=== PATIENT | male | born 1960 | race Caucasian/White ===

== ENCOUNTER 2024-04-25 08:10 | Day surgery (SDC) | payer BC ==
[~2024-04-25] VITALS: Ht 172.7 cm; Wt 90.5 kg
[2024-04-25] MEDS: CEFAZOLIN SOD 2 GM in D5W 50 ML IV ONE (07:00)
[2024-04-25] MEDS: ACETAMINOPHEN 500 MG TABLET ONE (08:30)
[2024-04-25] MEDS: oxyCODONE HCL 10 MG TAB.ER.12H PO ONE ×2 (08:31→11:25)
[2024-04-25] MEDS: GABAPENTIN 300 MG CAPSULE ONE (08:31)
[2024-04-25] MEDS ORDERED: HYDROmorphone 1 MG/ML INJ. CARTRIDGE IVP PRN ×5 (11:00→13:00)
[2024-04-25] MEDS ORDERED: LORATADINE 10 MG TABLET PO PRN (11:00)
[2024-04-25] MEDS ORDERED: traMADol HCL HCL 50 MG TABLET (ULTRAM) PO PRN (11:00)
[2024-04-25] MEDS: GABAPENTIN 300 MG CAPSULE PO ONE (11:25)
[2024-04-25] MEDS: ACETAMINOPHEN 500 MG TABLET PO ONE (11:25)
[2024-04-25] MEDS ORDERED: ONDANSETRON HCL 4 MG/2 ML VIAL IVP PRN ×2 (11:45→13:00)
[2024-04-25] MEDS ORDERED: ONDANSETRON HCL 4 MG/2 ML VIAL ONE (12:00)
[2024-04-25] MEDS ORDERED: ROCURONIUM BROMIDE 10 MG/ML (ZEMURON) ONE (12:00)
[2024-04-25] MEDS ORDERED: NS IRRIG SOLN 1000 ML IR ONE (12:00)
[2024-04-25] MEDS ORDERED: SEVOFLURANE 15 MIN GAS INH ONE (12:00)
[2024-04-25] MEDS ORDERED: VANCOMYCIN HCL 1000 MG/VIAL IV ONE (12:00)
[2024-04-25] MEDS ORDERED: PROPOFOL 200MG/ 20ML VIAL (DIPRIVAN) IV ONE (12:00)
[2024-04-25] MEDS ORDERED: SUGAMMADEX SODIUM 200 MG/2 ML VIAL IV ONE (12:00)
[2024-04-25] MEDS ORDERED: TRANEXAMIC ACID 1,000 MG/10 ML VIAL ONE (12:00)
[2024-04-25] MEDS ORDERED: WATER FOR IRRIGATION,STERILE 1,000 ML IRRIG.SOLN IR ONE (12:00)
[2024-04-25] MEDS ORDERED: DEXAMETHASONE SOD PHOSPHATE 4 MG/ML VIAL ONE (12:00)
[2024-04-25] MEDS ORDERED: LR 1,000 ML IV.SOLN IV ONE (12:00)
[2024-04-25] MEDS ORDERED: MIDAZOLAM HCL 2 MG/2 ML VIAL (VERSED) ONE (12:00)
[2024-04-25] MEDS ORDERED: BUPIVACAINE /EPINEPHRINE/PF 0.25% 30 ML VIAL ONE (12:00)
[2024-04-25] MEDS ORDERED: fentaNYL CITRATE/PF 100 MCG/2 ML AMP ONE (12:00)
[2024-04-25] MEDS ORDERED: MEPERIDINE HCL/PF 25 MG/ML DISP.SYRIN IVP PRN (13:00)
[2024-04-25] MEDS ORDERED: LABETALOL 100 MG/ 20ML VIAL IVP PRN (13:00)
[2024-04-25] MEDS: LR 1,000 ML IV SCH (13:00)
[2024-04-25] MEDS ORDERED: hydrALAZINE HCL 20 MG/ML VIAL IVP PRN (13:00)
[2024-04-25] MEDS ORDERED: METOCLOPRAMIDE HCL 10 MG/2 ML VIAL IVP PRN ×2 (13:00→21:15)
[2024-04-25] MEDS: HYDROmorphone 1 MG/ML INJ. CARTRIDGE ONE ×3 (14:45→15:40)
[2024-04-25] MEDS: LABETALOL HCL 20 MG/4 ML CARTRIDGE IVP ONE (15:10)
[2024-04-25] MEDS: TAMSULOSIN HCL 0.4 MG CAP ONE (16:22)
[2024-04-25] MEDS: TAMSULOSIN HCL 0.4 MG CAP PO ONE (17:00)
[2024-04-25] MEDS: CEFEPIME 2 GM in D5W 100 ML IV SCH (19:00)
[2024-04-25] MEDS ORDERED: BISACODYL 10 MG/SUPPOSITORY RC PRN (21:15)
[2024-04-25] MEDS ORDERED: DIPHENHYDRAMINE HCL 25 MG CAPSULE PO PRN (21:15)
[2024-04-25] MEDS ORDERED: LACTULOSE 20 GM/30 ML UDC PO PRN (21:15)
[2024-04-25 22:30] VITALS: BP_SYST 149; PULSE 73; RESP 20; TEMP 97.9; O2SAT 97
[2024-04-25] MEDS: SENNOSIDES/DOCUSATE SODIUM 1 TAB TABLET(SENOKOT-S) PO SCH (22:40)
[2024-04-25 23:25] VITALS: BP_SYST 164; PULSE 84; O2SAT 99
[2024-04-25] MEDS: oxyCODONE HCL 5 MG TABLET PO PRN (23:43)
[2024-04-25] MEDS: ACETAMINOPHEN 500 MG TABLET PO SCH (23:45)
[2024-04-26] VITALS: BP_SYST 149; PULSE 73; RESP 20; TEMP 97.9; O2SAT 97
[2024-04-26] MEDS: oxyCODONE HCL 5 MG TABLET PO PRN (06:45)
[2024-04-26 08:00] VITALS: BP_SYST 132; PULSE 68; RESP 18; TEMP 98.4; O2SAT 98
[2024-04-26] MEDS: TAMSULOSIN HCL 0.4 MG CAP PO SCH (09:00)
[2024-04-26] MEDS: ASPIRIN 81 MG TAB.CHEW PO SCH (09:06)
[2024-04-26] MEDS: CELECOXIB 200 MG CAPSULE PO SCH (09:06)
== END 2024-04-26 11:15 | disposition home or self-care (01) ==
LOC: SDS 08:10 → SMU 08:18 → SDS 04-26 11:15
PROVIDERS: ATTEND Orthopaedic Surgery Sports Medicine
DX: M16.12 Unilateral primary osteoarthritis, left hip (principal); M25.552 Pain in left hip; J45.909 Unspecified asthma, uncomplicated; Z98.890 Other specified postprocedural states; Z88.0 Allergy status to penicillin; Z79.899 Other long term (current) drug therapy
CPT/HCPCS: 87081; 27130; 97162; 72170; 76942; 94070; 97110; 97530; 97116; 88304; 88311; 64450; J3490 ×3; J0690; J1100; J2250; J2405; J2704; J3370; J3010; J1171; J7060 ×2; J7120; A4649; C1776 ×4; C1713 ×2; S2900; 76000; J0692